=== PATIENT | male | born 1945 | race Caucasian/White ===

== ENCOUNTER 2024-11-05 10:12 | Outpatient (CLI) | payer OTHER, MEDICARE, SELFPAY ==
--- NOTE | ~2024-11-05 | MR_ITS ---
EXAMINATION: MR lumbar spine wo kristan, 11/05/2024 10:30 CDT HISTORY: Radiculopathy, lumbar region COMPARISON: None TECHNIQUE: Multi-planar multi-sequence images were obtained of the lumbar spine without contrast per protocol. FINDINGS: There is a mild dextroconvex scoliosis. Moderate loss of vertebral height throughout. No fracture or subluxation. Marrow signal is appropriate. There is no abnormal signal within the posterior elements. Posterior alignment is intact. There are scattered areas of subcentimeter hemangioma formation There is moderate to severe loss of disc height throughout with multilevel moderate to severe disc desiccation and endplate degenerative changes Conus terminates at T12-L1, there is no abnormal signal within the cord The soft tissues appear unremarkable with partially imaged probable complex right renal cysts measuring 7 x 8 cm incompletely evaluated, ultrasound suggested. L5-S1: Circumferential bulging of the disc with severe bilateral foramina, lateral recess and moderate canal stenosis. Moderate ligamentum flavum and facet hypertrophy. L4-5: Circumferential bulging of the disc with moderate ligamentum flavum and facet hypertrophy. Moderate bilateral foramina, lateral recess and mild canal stenosis. L3-4: Circumferential bulging of the disc with ligamentum flavum and facet hypertrophy. Severe bilateral foramina, lateral recess and moderate to severe canal stenosis. L2-L3: Circumferential bulging of the disc with ligamentum flavum and facet hypertrophy asymmetrically to the left with severe left foramina and lateral recess stenosis, moderate right foramina and lateral recess stenosis, mild canal stenosis. L1-L2: Circumferential bulging of the disc with ligamentum flavum and facet hypertrophy. Severe bilateral foramina and moderate to severe canal stenosis. IMPRESSION: Severe multilevel degenerative changes detailed above Reviewed, dictated and finalized at location P.
== END 2024-11-05 10:13 | disposition home or self-care (01) ==
LOC: MICIMG 10:13
PROVIDERS: PCP Anesthesiology; Visit Provider Anesthesiology
DX: M47.896 Other spondylosis, lumbar region (principal); M47.897 Other spondylosis, lumbosacral region
CPT/HCPCS: 72148

== ENCOUNTER 2024-12-04 07:52 | Outpatient (CLI) | payer OTHER, MEDICARE, SELFPAY ==
--- NOTE | ~2024-12-04 | US_ITS ---
Examination: Ultrasound of the retroperitoneum including kidneys and bladder. Clinical History: Renal cyst, R . Comparison: MRI lumbar spine 11/05/2024. Findings: Right kidney: 12 cm. Normal echogenicity. No collecting system dilatation. No shadowing calculi. 5 cm simple cyst. Left kidney: 11 cm. Normal echogenicity. No collecting system dilatation. No shadowing calculi. 14 mm cyst. Urinary bladder: No wall thickening or focal abnormality. IMPRESSION: 1. No acute findings. 2. 5 cm simple cyst right kidney. Reviewed, dictated and finalized at location R.
== END 2024-12-04 07:53 | disposition home or self-care (01) ==
LOC: MICIMG 07:52
PROVIDERS: PCP Anesthesiology; Visit Provider Internal Medicine
DX: N28.1 Cyst of kidney, acquired (principal)
CPT/HCPCS: 76770